=== PATIENT | female | born 1955 | race Caucasian/White ===

== ENCOUNTER 2025-11-18 15:35 | Observation (INO) ==
--- NOTE | 2025-11-18 15:52 | ED Physician Documentation ---
History of Present Illness Stated complaint Stated Complaint: SOA Chief complaint Chief Complaint: Resp History obtained from History obtained from: Patient History of Present Illness Timing: Prior to arrival Additonal information Additional information: Patient is a 70-year-old female presenting with past medical history of COPD, hypothyroidism, history of hypertension. She ran out of medications approximately 4 days ago including amlodipine and losartan and her inhalers that she takes for her COPD. She presents here to the ED with increasing shortness of breath and difficulty breathing dry cough and request for medication refill. She has no fevers or chills. Per patient's friend who is present with her she has some baseline dementia. Patient unsure when she last took her last albuterol inhaler she does not believe she is on steroids at home. She has a dry nonproductive cough with no new leg swelling no dizziness no lightheadedness. Patient was started on 2 L and is speaking in short sentences on arrival secondary to shortness of breath. Patient did report some chest pain that started yesterday under her right side of her chest according to patient's friend however patient denies any symptoms at this time and does not remember having any chest pain yesterday. Majority of history obtained from patient's friend. Meds/Allgy Home Medications Ambulatory Orders Medication Instructions Recorded Confirmed albuterol sulfate 90 mcg/actuation 2 puff inhalation Q 6H PRN 08/29/25 08/29/25 aerosol inhaler (Ventolin HFA) amlodipine 2.5 mg tablet 2.5 mg PO QDAY #90 tabs 07/1609/17/25 levothyroxine 75 mcg capsule 75 mcg PO QDAY #90 caps 1 09/17/25 losartan 100 mg tablet 100 mg PO QDAY #90 tabs 07/1608/29/25 losartan 100 mg tablet mg PO QDAY 08/29/25 09/17/25 simvastatin 20 mg tablet 20 mg PO QDAY #90 tabs 08/2909/17/25 tiotropium bromide 18 mcg capsule 1 cap inhalation QDA Y #30 caps 08/29/25 09/17/25 with inhalation device (Spiriva with HandiHaler) Augmentin 875 mg-potassium 1 tab PO BID 7 days #14 tab s 11/18/25 clavulanate 125 mg tablet albuterol sulfate 90 mcg/actuation 1 inh inhalation Q4 H PRN shortness 11/18/25 breath activated powder of breath #1 ea inhaler,sensor doxycycline monohydrate 100 mg 100 mg PO BID 5 days #1 0 tabs 11/18/25 tablet Allergies Allergies Allergy/AdvReac Type Severity Reaction Status Date / Time No Known Drug Allergies Allergy Verified 11/18/25 15:40 PFSH Active Problems All Active Problems (Updated 11/18/25 @ 18:47 by GARLAND Coyle) Influenza A (Acute) COPD exacerbation (Acute) Acute hypoxic respiratory failure (Acute) Community acquired pneumonia (Acute) Acute and chronic respiratory failure (Acute) Pneumonia (Acute) Upper respiratory tract infection (Acute) Cough (Acute) Increasing shortness of breath (Acute) Elevated blood pressure reading (Acute) Ankle pain, left (Acute) Social History Social History Smoking Status: Current every day smoker Do you feel safe in your home environment?: Yes History of physical, verbal, emotional, or financial abuse?: No Exam Exam Vital Signs: Vital Signs x48h Temp Pulse Resp BP Pulse Ox O2 Flow Rate 11/18/25 17:46 120 H 22 164/71 H 98 2 11/18/25 17:26 120 H 16 2 11/18/25 16:11 116 H 18 2 11/18/25 16:03 2 11/18/25 15:45 98 2 11/18/25 15:40 36.8 C 124 H 24 184/116 H 88 L Constitutional normal general appearance Patient ANO x 3 increased respiratory effort speaking in short sentences HENMT normocephalic Dry mucous membranes Eyes PERRL and EOMs intact bilaterally Neck/C-Spine visual inspection normal Chest inspection of chest normal Respiratory Diminished breath sounds with tachypnea and increased respiratory effort with the use of accessory muscles on initial examination. Cardiovascular Patient tachycardic Results Vitals Vitals: Vital Signs - 24 hr 11/18/25 15:40 11/18/25 15:45 11/18/25 16:03 Temperature 36.8 C Temperature Source Temporal Artery Scan Pulse Rate 124 H Respiratory Rate 24 Blood Pressure 184/116 H O2 Saturation 88 L 98 Oxygen Delivery Method Room Air O2 Source Room air Nasal cannula If not protocol: Oxygen Flow, liters/minute 2 2 Pain Intensity 0 11/18/25 16:11 11/18/25 17:26 11/18/25 17:46 Temperature Temperature Source Pulse Rate 116 H 120 H 120 H Respiratory Rate 18 16 22 Blood Pressure 164/71 H O2 Saturation 98 Oxygen Delivery Method O2 Source Nasal cannula Nasal cannula Nasal cannula If not protocol: Oxygen Flow, liters/minute 2 2 2 Pain Intensity 0 Oxygen O2 Source Nasal cannula EKG (time done) 1624: EKG releavant findings:: EKG personally interpreted by author of this note. Relevant findings are: occasional PVC and PAC Rate: Tachy (115 bpm) Rhythm: Sinus tachycardia [place]: Normal Intervals: Normal TX QRS: QRS normal Ischemia: Normal ST segments Compare to prior EKG: Unchanged from prior EKG Computer interpretation: Agree with computer Labs Labs: Laboratory Tests 11/18/25 11/18/25 11/18/25 15:55 16:05 16:14 WBC 9.2 RBC 4.70 Hgb 13.8 Hct 42.2 MCV 89.8 MCH 29.4 MCHC 32.7 RDW 13.2 Plt Count 319 MPV 10.0 Neut # (Auto) 7.6 H Lymph # (Auto) 0.6 L [place] # (Auto) 0.9 Eos # (Auto) 0.0 Baso # (Auto) 0.0 Absolute Nucleated RBC 0.00 Nucleated RBC % 0.0 VBG pH 7.366 VBG pCO2 44.2 VBG pO2 42.4 VBG HCO3 26.8 VBG Total CO2 28.1 VBG O2 Saturation 66.0 VBG Base Excess 1.5 Sodium 132 L Potassium 3.7 Chloride 92 L Carbon Dioxide 30 Anion Gap 10.0 BUN 18 Creatinine 1.1 Estimated GFR (MDRD) 49 L Glucose 123 H Calcium 9.8 Total Bilirubin 0.3 AST 49 H ALT 33 Alkaline Phosphatase 123 H Troponin I High Sens 13.4 B-Natriuretic Peptide 36 Total Protein 6.9 Albumin 4.2 Globulin 2.7 Albumin/Globulin Ratio 1.6 Nasal Adenovirus (PCR) NOT DETECTED Nasal B. parapertussis DNA (PCR) NOT DETECTED Nasal Coronavir 229E PCR NOT DETECTED Nasal Coronavir HKU1 PCR NOT DETECTED Nasal Coronavir NL63 PCR NOT DETECTED Nasal Coronavir OC43 PCR NOT DETECTED Nasal Enterovir/Rhinovir PCR NOT DETECTED Nasal Influenza A PCR DETECTED A Nasal Influenza B PCR NOT DETECTED Nasal Parainfluen 1 PCR NOT DETECTED Nasal Parainfluen 2 PCR NOT DETECTED Nasal Parainfluen 3 PCR NOT DETECTED Nasal Parainfluen 4 PCR NOT DETECTED Nasal RSV (PCR) NOT DETECTED Nasal B.pertussis DNA PCR NOT DETECTED Nasal C.pneumoniae (PCR) NOT DETECTED Solo Human Metapneumo PCR NOT DETECTED Nasal M.pneumoniae (PCR) NOT DETECTED Nasal SARS-CoV-2 (PCR) NOT DETECTED PD Medical Decision Making ED course Complexity details: reviewed old records and reviewed results ED course: Patient is a 70-year-old female presenting to the emergency department with shortness of breath. Symptoms been going on for approximately 1 day patient was reporting some left-sided chest pain yesterday. She had noted her medications about 4 days ago including blood pressure and albuterol and hypothyroidism medications. Patient denies any chest pain at this time but she is very short of breath and she is hypoxic on arrival diminished breath sounds on auscultation patient was started on 2 L as she was hypoxic to 87% on arrival to the ED. DuoNeb was ordered for patient as well as 60 of prednisone for COPD exacerbation. Basic labs and chest x-ray obtained to further evaluate patient's symptoms. Patient received 1 DuoNeb here in the ED and 60 of prednisone feeling slightly better here in the ED on repeat evaluation. CXR:Focal opacities which could represent pneumonia. Patient has some opacities on chest x-ray she was given Augmentin and doxycycline here in the ED to cover for COPD exacerbation and possible pneumoni a. Patient was weaned off of oxygen here in the ED and given another DuoNeb treatment while monitoring symptoms closely here in the ED. CBC is unremarkable with no signs of anemia and no signs of leukocytosis to suggest infection at this time. She has some mild hyponatremia at 132 with a bicarb of 92. GFR is 49 and has a slight elevation of her AST at 49. Her ALT is well within normal limits. She does not have previous labs to compare to. I obtained an EKG as she was tachycardic here in the ED she is sinus tachycardic with some premature complexes but otherwise no ST elevation or depression troponin is well within normal limits. Patient monitored here in the ED and had Some improvement in her breathing but on room air trial she desatted into 86% was restarted on 2 L nasal cannula she remained saturating at 91% will give second DuoNeb and reevaluate patient. Patient continued to desat after second DuoNeb patient will be admitted and discussed with Bernice HAQUE. She is agreeable with admission and patient agreeable with this plan. Discharge Plan Discharge Patient Disposition: [facility] DC/Xfer Condition: Stable Clinical Impression: Increasing shortness of breath, Cough, COPD exacerbation, Upper respiratory tract infection, Acute and chronic respiratory failure, Community acquired pneu monia Interventions: ED Admission Assessment Last Done: 11/18/25 18:43 Vitals documented within 30 minutes of discharge?: Yes
[2025-11-18] MEDS: IPRATROPIUM/ALBUTEROL 3 ML NEB INH STA ×2 (16:09→17:26)
[2025-11-18 16:10] LABS: HCT - HEMATOCRIT 42.2 % (37.0-47.0); HGB - HEMOGLOBIN 13.8 g/dL (12.0-16.0); MEAN PLATELET VOLUME 10.0 fL (7.9-10.8); NRBC ABSOLUTE COUNT (AUTO) 0.00 x10^3/uL; NUCLEATED RED BLOOD CELLS AUTO 0.0 /100WBC; PLT - PLATELET COUNT 319 10^3/uL (130-450); RED CELL DISTRIBUTION WIDTH 13.2 % (12.0-15.0)
--- NOTE | 2025-11-18 16:14 | XRAY Report ---
PROCEDURE: XR Chest 1V INDICATIONS: sob, cough TECHNIQUE: One view of the chest was acquired. COMPARISON: None. FINDINGS: Hyperinflation of the lungs. Lucency which may reflect emphysematous changes. Faint patchy opacities, most conspicuous in the left upper lung. Heart size normal. Pulmonary vasculature normal. No pneumothorax or pleural effusion. IMPRESSION: Focal opacities which could represent pneumonia. Reviewed by: Jignesh Gonzalez MD on 11/18/2025 4:10 PM PST Approved by: Jignesh Gonzalez MD on 11/18/2025 4:10 PM PST Station ID: [id number]
[2025-11-18 16:30] LABS: ALT ALANINE AMINOTRANSFERASE 33.0 IU/L (10-60); AST ASPARTATE AMINOTRANSFERASE 49.0 IU/L (10-42); BUN - BLOOD UREA NITROGEN 18.0 mg/dL (6-20); CARBON DIOXIDE - CO2 30.0 mmol/L (21-32); CREATININE 1.1 mg/dL (0.6-1.3); GFR - MDRD 49.0 (>89)
[2025-11-18 16:31] LABS: TROPONIN I HIGH SENSITIVITY 13.4 ng/L (2.3-14.8)
[2025-11-18] MEDS: DOXYCYCLINE 100 MG TABLET PO STA (17:42)
[2025-11-18] MEDS: AMOX/CLAV 875 MG/125 MG TABLET PO STA (17:42)
[2025-11-18] MEDS: SODIUM CHLORIDE 0.9% 1,000 ML IV STA (17:42)
[2025-11-18 18:01] LABS: B. PARAPERTUSSIS- RESP PCR PAN NOT DETECTED; B. PERTUSSIS- RESP PCR PANEL NOT DETECTED; C. PNEUMONIAE- RESP PCR PANEL NOT DETECTED; CORONAVIRUS 229E-RESP PCR NOT DETECTED; CORONAVIRUS HKU1-RESP PCR NOT DETECTED; CORONAVIRUS NL63-RESP PCR NOT DETECTED; CORONAVIRUS OC43-RESP PCR NOT DETECTED; HUMAN METAPNEUMOVIRUS NOT DETECTED; INFLUENZA A NO SUB- RESP PCR DETECTED; INFLUENZA B - RESP PCR PANEL NOT DETECTED; M. PNEUMONIAE- RESP PCR PANEL NOT DETECTED; PARAINFLUENZA VIRUS 1 NOT DETECTED; PARAINFLUENZA VIRUS 2 NOT DETECTED; PARAINFLUENZA VIRUS 4 NOT DETECTED; RHINOVIRUS/ENTEROVIRUS NOT DETECTED; RSV- RESP PCR PANEL NOT DETECTED; SARS-CoV-2 -RESP PCR PANEL NOT DETECTED
[2025-11-18 18:21] LABS: VBG PCO2 44.2 mmHg (41-51); VBG PH 7.366 (7.31-7.41); VBG PO2 42.4 mmHg (25-47)
[2025-11-18 18:22] LABS: VBG BASE EXCESS 1.5 mmol/L (-2 - +2); VBG TOTAL CO2 28.1 mmol/L (24-29)
--- NOTE | 2025-11-18 18:33 | HISTORY & PHYSICAL EXAMINATION ---
Chief Complaint Chief Complaint Chief Complaint: SOA History of Present Illness Admitted From Admitted From:: home History Obtained From Records Reviewed: [facility] notes History obtained from: patient History of Present Illness HPI Comment/Other: 70F smoker with COPD, hypothyroid, HTN, HLD, presents to ED with shortness of breath. She has hx COPD and states that she lost all her meds. She has been having problems breathing and therefore came in. her O2 sat on RA was 87% per ED provider. she is tachypneic, and has gotten duoneb x2, 60mg pred, doxycycline and augmentin in the ED. She has failed to improve and is still requiring oxygen, therefore, per my discussion with Gricel Mooney in the ED she will be admitted to obs status. She [place] family. Per the ED provider, patient has some mild cognitive impairment. She is irritated with my questions when I ask her about where she fills meds and how long she has been out of them . family member not currently at bedside. PAtient tells me that she does not live here, she lives in [place], but is staying here bc her well stopped working. She is living in a motor home with 2 other family members She does not have a surrogate medical decision maker and refuses to name one. She requests full code status. She is irritable, tells me that she gets short of breath when she talks and does not want to answer my questions. Meds/Allgy Home Medications Ambulatory Orders Medication Instructions Recorded Confirmed albuterol sulfate 90 mcg/actuation 2 puff inhalation Q 6H PRN 08/29/25 08/29/25 aerosol inhaler (Ventolin HFA) amlodipine 2.5 mg tablet 2.5 mg PO QDAY #90 tabs 07/1609/17/25 levothyroxine 75 mcg capsule 75 mcg PO QDAY #90 caps 1 09/17/25 losartan 100 mg tablet 100 mg PO QDAY #90 tabs 07/1608/29/25 losartan 100 mg tablet mg PO QDAY 08/29/25 09/17/25 simvastatin 20 mg tablet 20 mg PO QDAY #90 tabs 08/2909/17/25 tiotropium bromide 18 mcg capsule 1 cap inhalation QDA Y #30 caps 08/29/25 09/17/25 with inhalation device (Spiriva with HandiHaler) Augmentin 875 mg-potassium 1 tab PO BID 7 days #14 tab s 11/18/25 clavulanate 125 mg tablet albuterol sulfate 90 mcg/actuation 1 inh inhalation Q4 H PRN shortness 11/18/25 breath activated powder of breath #1 ea inhaler,sensor doxycycline monohydrate 100 mg 100 mg PO BID 5 days #1 0 tabs 11/18/25 tablet Allergies Allergies Allergy/AdvReac Type Severity Reaction Status Date / Time No Known Drug Allergies Allergy Verified 11/18/25 15:40 PFSH Active Problems All Active Problems (Updated 11/18/25 @ 19:05 by GARLAND Coyle) Tobacco dependence (Acute) Influenza A (Acute) COPD exacerbation (Acute) Acute hypoxic respiratory failure (Acute) Community acquired pneumonia (Acute) Acute and chronic respiratory failure (Acute) Pneumonia (Acute) Upper respiratory tract infection (Acute) Cough (Acute) Increasing shortness of breath (Acute) Elevated blood pressure reading (Acute) Ankle pain, left (Acute) Social History Social History Smoking Status: Current every day smoker Do you feel safe in your home environment?: Yes History of physical, verbal, emotional, or financial abuse?: No POLST Patient has POLST: No POLST on file?: No POLST CPR Status: Attempt Resuscitation (CPR) Level of Medical Intervention: Full Treatment Review of Systems Status of ROS: 10 or more systems reviewed and unremarkable except as noted in history and below Prior Level of Functionality: independent. does not use assistive devices Exam Exam Vital Signs: Vital Signs x48h Temp Pulse Pulse Resp BP BP Pulse Ox 11/18/25 20:57 36.6 C 98 20 130/64 98 11/18/25 19:15 22 97 11/18/25 19:10 89 L 11/18/25 19:00 36.7 C 113 H 24 172/87 H 97 11/18/25 18:43 113 H 22 164/71 H 96 11/18/25 17:46 120 H 22 164/71 H 98 11/18/25 17:26 120 H 16 11/18/25 16:11 116 H 18 11/18/25 16:03 11/18/25 15:45 98 11/18/25 15:40 36.8 C 124 H 24 184/116 H 88 L O2 Flow Rate 11/18/25 20:57 2 11/18/25 19:15 2 11/18/25 19:10 1 11/18/25 19:00 2 11/18/25 18:43 1 11/18/25 17:46 2 11/18/25 17:26 2 11/18/25 16:11 2 11/18/25 16:03 2 11/18/25 15:45 2 11/18/25 15:40 Constitutional irritable. thin. BMI 15 [facility] normocephalic, hearing grossly normal bilaterally and oral mucous membranes normal Eyes conjunctivae normal and no scleral icterus Neck/C-Spine visual inspection normal Lymph no lymphadenopathy noted Chest inspection of chest normal Respiratory breath sounds equal bilaterally RR 22-24. diffuse rhonchi on exam Cardiovascular tachycardia that is regular Gastrointestinal abdomen soft to palpation Back/Pelvis spine normal to inspection Extremities normal to inspection Neurology gait normal, speech normal and GCS 15 Psychiatry mental status grossly normal, oriented x3 and uncooperative does not want to participate in the interview. does not welcome care. Skin skin color normal Conclusion/Plan Problem List (1) Acute hypoxic respiratory failure: Plan: Hx of COPD and out of meds. She tells me that she lost her meds, but that she has more to pickup, but she cannot tell me what pharmacy she uses. She is a smoker, 1 pack every 1.5 days. She does not use home oxygen. She likely has this acute respirtory failure secondary to Flu A infection and CAP. She will be treated with supplemental oxygen. I will treat the secondary couses of her respiratory failure. I will make sure that on discharge she is precribed refills of her home meds. She has a PCP appt on 12/05. (2) Influenza A: Plan: She became symptomatic today with worsening of her COPD, which may, in retrospect be influenza infection. I will start her on Tamiflu as she at high risk for worsening of her condition. (3) Community acquired pneumonia: Plan: faint patchy opacities on CXR, she is symptomatic. She does not have a leukocytosis but has tachypnea and hypoxia. I am treating her with rocephin and azithromycin. (4) COPD exacerbation: Plan: supportive care with bronchodilators and supplemental oxygen. I will treat her inflammation with steroids. This should resolve with treatment of lung infection. (5) Tobacco dependence: Plan: She requests nicotine patch, this was ordered. Lab Results Lab results reviewed: Yes 11/18/25 16:05 11/18/25 16:05 Diagnostic Imaging Results Diagnostic Imaging Results: positive Final report reviewed and Read independently EKG Results EKG Interpreted Independently: Yes EKG Findings: sinus tachy Core Measures Anticipated LOS I expect patient to be DC'd or transferred within 96 hours.: Yes DVT/VTE - Prophylaxis VTE/DVT Device ordered at admit?: Yes VTE/DVT Prophylaxis med ordered at admit?: Yes
[2025-11-18] MEDS ORDERED: SODIUM CHLORIDE FLUSH 0.9% 10 ML SYRINGE IVP PRN (18:59)
[2025-11-18] MEDS ORDERED: IBUPROFEN 400 MG TABLET PO PRN (18:59)
[2025-11-18] MEDS ORDERED: ONDANSETRON ODT 4 MG TABLET TL PRN (18:59)
[2025-11-18] MEDS ORDERED: ACETAMINOPHEN 325 MG TABLET PO PRN (18:59)
[2025-11-18] MEDS: AZITHROMYCIN INJ 500 MG in SODIUM CHLORIDE 0.9% 250 ML IV SCH (19:41)
[2025-11-18] MEDS: guaiFENesin 100 MG/5 ML UDC PO SCH (19:43)
[2025-11-18] MEDS: OSELTAMIVIR 75 MG CAPSULE PO ONE (21:06)
[2025-11-18] MEDS: methylPREDNISolone SUCCINATE 40 MG/ML VIAL IVP SCH (21:06)
[2025-11-19] MEDS: SODIUM CHLORIDE FLUSH 0.9% 10 ML SYRINGE IVP SCH (02:42)
[2025-11-19] MEDS: NICOTINE 7 MG PATCH TOP SCH (02:44)
[2025-11-19] MEDS: IPRATROPIUM/ALBUTEROL 3 ML NEB INH PRN (06:09)
[2025-11-19] MEDS: OSELTAMIVIR 30 MG CAPSULE PO SCH (08:10)
[2025-11-19] MEDS: cefTRIAXone 1 GM in SODIUM CHLORIDE 0.9% MINIBAG 100 ML IV SCH (08:10)
[2025-11-19] MEDS: ENOXAPARIN 40 MG/0.4 ML SYRINGE SUBQ SCH (08:10)
[2025-11-19 08:14] LABS: HCT - HEMATOCRIT 38.6 % (37.0-47.0); HGB - HEMOGLOBIN 12.8 g/dL (12.0-16.0); MEAN PLATELET VOLUME 9.8 fL (7.9-10.8); NRBC ABSOLUTE COUNT (AUTO) 0.00 x10^3/uL; NUCLEATED RED BLOOD CELLS AUTO 0.0 /100WBC; PLT - PLATELET COUNT 327 10^3/uL (130-450); RED CELL DISTRIBUTION WIDTH 13.2 % (12.0-15.0)
[2025-11-19 08:28] LABS: ALT ALANINE AMINOTRANSFERASE 39.0 IU/L (10-60); AST ASPARTATE AMINOTRANSFERASE 59.0 IU/L (10-42); BUN - BLOOD UREA NITROGEN 12.0 mg/dL (6-20); CARBON DIOXIDE - CO2 28.0 mmol/L (21-32); CREATININE 0.8 mg/dL (0.6-1.3); GFR - MDRD 71.0 (>89)
[2025-11-19] MEDS ORDERED: NICOTINE 7 MG PATCH TOP SCH (09:00)
--- NOTE | 2025-11-19 12:54 | PHARMACY PROGRESS NOTE ---
Best Possible Medication History Admit Date and Time: 11/18/25 1823 Home Medications Medication Instructions Recorded Confirmed Type Augmentin 875 mg-potassium 1 tab PO BID 7 days #14 tab s 11/18/25 Rx clavulanate 125 mg tablet albuterol sulfate 90 mcg/actuation 1 inh inhalation Q4 H PRN shortness 11/18/25 Rx breath activated powder of breath #1 ea inhaler,sensor doxycycline monohydrate 100 mg 100 mg PO BID 5 days #1 0 tabs 11/18/25 Rx tablet amlodipine 2.5 mg tablet 2.5 mg PO DAILY 11/19/25 History levothyroxine 75 mcg tablet 75 mcg PO DAILY 11/19/25 1 History losartan 100 mg tablet 100 mg PO DAILY 11/19/25 History tiotropium bromide 18 mcg capsule 1 cap inhalation BRENDA LY 11/19/25 11/19/25 History with inhalation device (Spiriva with HandiHaler) Processed by: Pharmacy Medications reviewed in ED?: Yes Medication History completed: Yes Patient Interview: Completed Secondary Source(s): Insurance records [facility] Statement: As the person ultimately responsible for medication therapy, providers are able to order a medication from an existing home medication list in [facility] via the "Reconcile Routine" prior to Confirmation of that medication by cryptologic support specialist. Such practice is discouraged except when the physician, in their clinical judgment, deems that a medical need exists for a medication without regard to previous use.
--- NOTE | 2025-11-19 13:50 | Discharge Summary ---
Discharge Summary Admit Date: 11/18/25 Discharge Date: 11/19/25 Discharging Provider: Bernice Wiseman PA-C Primary Care Provider: Yvette Lomas PA-C Code Status: Attempt Resuscitation DIAGNOSES Discharge Diagnoses with Status of Each Condition: Acute hyoxic respiratory failure, discharge to home on oxygen Influenza A- dc to home on tamiflu to complete 5d course CAP- dc to home on doxycycline and augmentin COPD exacerbation, secondary to Flu A and CAP Tobacco smoker, she has been counseled extensively and given written instructions regarding no smoking around oxygen. HPI History of Present Illness: 70F smoker with COPD, hypothyroid, HTN, HLD, presents to ED with shortness of breath. She has hx COPD and states that she lost all her meds. She has been having problems breathing and therefore came in. her O2 sat on RA was 87% per ED provider. she is tachypneic, and has gotten duoneb x2, 60mg pred, doxycycline and augmentin in the ED. She has failed to improve and is still requiring oxygen, therefore, per my discussion with Gricel Mooney in the ED she will be admitted to obs status. She has been living here on the [place] with family. Per the ED provider, patient has some mild cognitive impairment. She is irritated with my questions when I ask her about where she fills meds and how long she has been out of them . family member not currently at bedside. PAtient tells me that she does not live here, she lives in [place], but is staying here bc her well stopped working. She is living in a motor home with 2 other family members She does not have a surrogate medical decision maker and refuses to name one. She requests full code status. She is irritable, tells me that she gets short of breath when she talks and does not want to answer my questions. HOSPITAL COURSE Hospital Course: Patient was resistant to admission to begin with but agreed to stay overnight, as she was oxygen dependent and very dyspneic. She treated with supplemental oxygen, nicotine replacement, abx, tamiflu, and steroids. She improved somewhat but still remained on 2L NC and did not worsen. She was insisent on dc to home. She was able to wean to room air at rest, but did require 2LNC oxygen with ambulation. We discussed smoking cessation. She states that she has no interest in smoking cessation. she knows that smoking is causing her health problems, but she refuses to stop. She is now going to need oxygen with ambulation. We discussed the imperative that she not forget she is wearing oxygen and light a cigarette. I am concerned as this patient is also demonstrating some signs of cognitive impairment. It would also seem that her social situation is somewhat complicated. She came here from [place] to stay with family, as her well had broken, and she had no water source. She wants to go back there, when she can get things fixed, but it seems that her family is aware of her deficits and possibly she should not be living independently at this point. when we talked about "home" she often insists that she is not leaving the hospital to go "home" but back to stay with her family in [place]. She is apparently living there in a motor home. ALLERGIES Allergies Allergy/AdvReac Type Severity Reaction Status Date / Time No Known Drug Allergies Allergy Verified 11/18/25 15:40 MEDICATIONS Ambulatory Orders Medication Instructions Recorded Confirmed Augmentin 875 mg-potassium 1 tab PO BID 7 days #14 tab s 11/18/25 clavulanate 125 mg tablet albuterol sulfate 90 mcg/actuation 1 inh inhalation Q4 H PRN shortness 11/18/25 breath activated powder of breath #1 ea inhaler,sensor doxycycline monohydrate 100 mg 100 mg PO BID 5 days #1 0 tabs 11/18/25 tablet amlodipine 2.5 mg tablet 2.5 mg PO DAILY #30 tabs levothyroxine 75 mcg tablet 75 mcg PO DAILY #30 tabs 1 losartan 100 mg tablet 100 mg PO DAILY #30 tabs oseltamivir 30 mg capsule 30 mg PO BID #8 caps 5 prednisone 20 mg tablet 40 mg (2 x 20 mg) PO DAILY # 8 tabs 11/19/25 tiotropium bromide 2.5 2 inh inhalation QAM #4 gram s 11/19/25 mcg/actuation mist for inhalation (Spiriva Respimat) PHYSICAL EXAM AT DISCHARGE Vital Signs: Vital Signs x48h Temp Pulse Pulse Resp BP Pulse Ox 11/19/25 15:34 36.6 C 98 20 151/95 H 92 11/19/25 12:59 122 H 11/19/25 12:52 124 H 20 11/19/25 12:35 36.8 C 108 H 22 149/79 H 94 General Appearance: positive No acute distress, Alert and Other (BMI 15) Eyes Bilateral: positive Normal inspection ENT: positive ENT inspection nml Neck: positive Nml inspection Respiratory: positive Chest non-tender, No respiratory distress and Rhonchi (diffuse) Cardiovascular: positive Regular rate & rhythm and No murmur Abdomen: positive No distention Back: positive Nml inspection Skin: positive Color nml and No rash Extremities: positive No pedal edema Neurologic/Psychiatric: positive Oriented x3 LABS 11/19/25 08:08 11/19/25 08:08 FOLLOW UP Follow Up: GARLAND Lomas, [facility], tomorrow. TIME SPENT Time Spent in Discharge (Minutes): 45 Discharge Plan Discharge Patient Disposition: Home, Self Care Condition: Stable Prescriptions: New albuterol sulfate 90 mcg/actuation aero powdr breath act w/sensor 1 inh inhalation Q4H PRN (Reason: shortness of breath) Qty: 1 2RF doxycycline monohydrate 100 mg tablet 100 mg PO BID 5 Days Qty: 10 0RF amoxicillin-pot clavulanate 875-125 mg tablet 1 tab PO BID 7 Days Qty: 14 0RF prednisone 20 mg tablet 40 mg PO DAILY Qty: 8 0RF oseltamivir 30 mg Capsule 30 mg PO BID Qty: 8 0RF Spiriva Respimat 2.5 mcg/actuation mist 2 inh inhalation QAM Qty: 4 2RF Continued levothyroxine 75 mcg tablet 75 mcg PO DAILY Qty: 30 1RF Patient Comments: TAKE 1 TABLET BY MOUTH ONCE DAILY Changed amlodipine 2.5 mg tablet 2.5 mg PO DAILY Qty: 30 1RF losartan 100 mg tablet 100 mg PO DAILY Qty: 30 1RF Discontinued tiotropium bromide [Spiriva with HandiHaler] 18 mcg capsule, w/inhalation device 1 cap inhalation DAILY Activity Restrictions/Additional Instructions: You need a repeat chest x-ray in 1 week to rule out any other causes of abnormal chest x-ray. You may require further imaging depending on results of chest x- ray follow-up with your PCP closely in the outpatient setting. I have sent a refill of your home medications. Please pick them up at [facility] Interventions: Belongings Inventory Last Done: 11/18/25 19:27 Discharge Last Done: 11/19/25 14:22 Discharge Checklist - Nursing Last Done: 11/19/25 14:45 Discharge Vital Signs (30 Minutes) Last Done: 11/19/25 15:34 Health Concerns: Your Diagnosis You were hospitalized for a flare-up (exacerbation) of your chronic obstructive pulmonary disease (COPD) caused by pneumonia and influenza A infection. You are now being discharged home with oxygen therapy. Medications Take all medications exactly as prescribed: * Antibiotics: Complete the full course (typically 5 days total) even if you feel better. Take with food if stomach upset occurs. * Prednisone(or other steroid): Take for 5 days as prescribed. Do not stop suddenly. Take with food to reduce stomach upset. * Influenza antiviral(if prescribed): Complete the full course as directed. This is called Tamiflu. (oseltamivir) * Inhalers: * Use your rescue inhaler (albuterol) as needed for shortness of breath * Use your maintenance inhalers (long-acting bronchodilators and/or inhaled steroids) every day as prescribed, even when feeling well * Ask your pharmacist or nurse to review proper inhaler technique with you Important: Your doctor may have started you on new maintenance inhalers during this hospitalization. These are critical to prevent future flare-ups. Home Oxygen Therapy You are being discharged with home oxygen. * Use oxygen for at least 15 hours per day, including during sleep * Your oxygen flow rate is:0 liters per minute at rest and 2liters per minute with activity. you do not need oxygen when you are sitting. * Target oxygen saturation: 88-92% * Keep oxygen away from open flames, heat sources, and smoking materials. DO NOT SMOKE WITH YOUR OXYGEN ON OR RUNNING!!!! * Post "No Smoking - Oxygen in Use" signs in your home * You will be reassessed in 4-8 weeks to determine if you still need oxygen. We are getting you a primary care appointment at [facility] as soon as possible. Oxygen Safety: * Never smoke or allow others to smoke near oxygen equipment * Keep oxygen at least 5 feet away from stoves, candles, or other heat sources * Turn off oxygen when not in use if prescribed for intermittent use only Smoking Cessation - CRITICAL Quitting smoking is the single most important thing you can do for your health. Continuing to smoke will: * Worsen your COPD and lung function * Increase your risk of future hospitalizations * Make your oxygen therapy dangerous (fire hazard) * Reduce the effectiveness of your medications Resources to help you quit: * Nicotine replacement therapy (patches, gum, lozenges) - available [id number] * Prescription medications (varenicline, bupropion) - ask your doctor * Counseling support - call -NOW ( ) for free telephone counseling * Combination of counseling and medication gives you the best chance of success[1][5-6] Your doctor can prescribe smoking cessation medications and refer you for counseling. Studies show quit rates of 12-27% with intensive support and medication. Warning Signs - When to Seek Help Call 911 or go to the emergency department if you experience: * Severe shortness of breath not relieved by your rescue inhaler * Chest pain * Confusion or difficulty staying awake * Blue lips or fingernails * Coughing up blood Call your doctor if you have: * Increased shortness of breath * Increased cough or change in mucus color (yellow, green, or bloody) * Fever (temperature above 100.4F or 38C) * Increased swelling in your ankles or legs * Symptoms not improving after 2-3 days Activity and Self-Care * Gradually increase your activity as tolerated * Use your oxygen as prescribed during activity * Practice breathing exercises as taught by respiratory therapy * Avoid people who are sick, especially during cold and flu season * Wash your hands frequently * Get adequate rest - recovery can take 4-6 weeks Print Language: Czech Patient Instructions: ED Influenza (Adult) Follow-up Care: Yvette Lomas PA-C [Primary Care Provider, Family Practice] Vitals documented within 30 minutes of discharge?: Yes
[2025-11-19 15:35] VITALS: BP 151/95; TEMP 97.9; O2SAT 92
== END 2025-11-19 15:35 | disposition home or self-care (01) ==
LOC: MS2 15:35 → ED 15:35 → MS2 18:44
PROVIDERS: ADMIT Physician Assistant Medical; ATTEND Physician Assistant Medical
DX: J10.00 Influenza due to other identified influenza virus with unspecified type of pneumonia; I10 Essential (primary) hypertension; Z91.128 Patient's intentional underdosing of medication regimen for other reason; F17.210 Nicotine dependence, cigarettes, uncomplicated; E03.9 Hypothyroidism, unspecified; J44.1 Chronic obstructive pulmonary disease with (acute) exacerbation; R41.89 Other symptoms and signs involving cognitive functions and awareness; J10.1 Influenza due to other identified influenza virus with other respiratory manifestations; J96.01 Acute respiratory failure with hypoxia; J44.0 Chronic obstructive pulmonary disease with (acute) lower respiratory infection; E78.5 Hyperlipidemia, unspecified